=== PATIENT | female | born 1955 | race Caucasian/White ===

== ENCOUNTER 2021-11-01 12:57 | Inpatient (IN) | payer OTHER ==
[~2021-11-01] VITALS: Ht 162.6 cm; Wt 84.4 kg
[~2021-11-01 12:57] MED LIST: ASA81 PO; LIP20 PO
[2021-11-01 13:03] VITALS: BP_SYST 103
--- NOTE | 2021-11-01 13:37 | NUR ---
Patient to ER Hallway 1 to [facility] for evaluation. Side rails up. Report given to Maria Victoria FATIMA.
--- NOTE | 2021-11-01 13:42 | NUR ---
ER at bedside examining patient.
[2021-11-01] MEDS ORDERED: NACL 0.9% 1,000 ML IV ONE (14:00)
[2021-11-01 14:13] LABS: BASOPHILS % (AUTO) 0.3 % (0.0-2.0); EOSINOPHILS % (AUTO) 0.3 % (0.0-4.0); HEMATOCRIT 39.1 % (36-48); HEMOGLOBIN 12.9 g/dL (12.0-16.0); LYMPHOCYTES # (AUTO) 1.2 K/uL (1.0-5.5); MEAN CORPUSCULAR HEMOGLOBIN 28 pg (27-31); MEAN CORPUSCULAR HGB CONC 33 % (32-36); MEAN CORPUSCULAR VOLUME 85 fL (79.0-98.0); MONOCYTES # (AUTO) 0.4 K/uL (0.0-1.0); MONOCYTES % (AUTO) 5.4 % (1.7-9.3); NEUTROPHILS # (AUTO) 6.6 K/uL (1.8-7.7); PLATELET COUNT (AUTO) 164 K/uL (130-430); RED BLOOD CELL COUNT(AUTO) 4.58 MIL/uL (4.2-6.2); RED CELL DISTRIBUTION WIDTH 14.7 % (9.0-15.0); WHITE BLOOD COUNT (AUTO) 8.2 K/uL (4.8-10.8)
[2021-11-01 14:36] LABS: ANION GAP 7 (5-15); CALCIUM 8.7 mg/dL (8.4-11.0); CHLORIDE 105 mmol/L (98-107); CREATININE 0.85 mg/dL (0.55-1.30); GLUCOSE 126 mg/dL (70-99); POTASSIUM 3.9 mmol/L (3.5-5.1); SODIUM SERUM 140 mmol/L (136-145); UREA NITROGEN, BLOOD 22 mg/dL (8-21)
[2021-11-01 14:45] LABS: GFR AFRICAN AMERICAN 86 mL/min (>90)
[2021-11-01 14:51] LABS: ALANINE AMINOTRANSFERASE 27 U/L (12-78); ALBUMIN 3.8 g/dL (3.4-4.8); ASPARTATE AMINOTRANSFERASE 26 U/L (10-37); THYROID STIMULATING HORMONE 1.36 uIu/mL (0.36-3.74); TOTAL BILIRUBIN 0.5 mg/dL (0.0-1.0)
[2021-11-01] MEDS ORDERED: dilTIAZem HCL IVP 5 MG/ML VIAL IVP ONE (15:00)
--- NOTE | 2021-11-01 16:00 | NUR ---
Pt ambulates steadily to restroom. c/o chest tightness. BRADY Fermin gave Cardizem.
--- NOTE | 2021-11-01 16:30 | NUR ---
assumed care to pt at this time. report received from Maria Victoria FATIMA. pt is resting comfortably at bedside, vss nad. aox4, res even and unlabored. no pending orders at this time. wctm. awaiting 2nd trop results.
[2021-11-01] MEDS ORDERED: ASPIRIN 325 MG TABLET PO ONE (17:15)
[2021-11-01] MEDS ORDERED: DILTIAZEM HCL 30 MG TABLET PO ONE (17:30)
--- NOTE | 2021-11-01 17:34 | NUR ---
Covid specimen collected and sent to the lab.
--- NOTE | 2021-11-01 18:06 | NUR ---
Admit bed requested Patient will be admitted to care of . Admitted to Tele unit. Diagnosis A-Fib Inpatient (Yes or No) Yes Observation (Yes or No) No Orientation concerns or request close to nursing station (Yes or No) No Covid Status Negative On vent or bipap No Isolation requirements No Needs a sitter No From Home (Yes or if No enter name of facility) Yes Requires Dialysis (Yes or No) No Med Rec Completed (Yes of No) Pending
--- NOTE | 2021-11-01 18:45 | NUR ---
bedside report given to maricruz Payton. all questions answered. pt is aox4, resp even and unlabored. all belongngs with pt. iv site patent and intact. vss nad. condition: stable.
[2021-11-01 18:58] VITALS: BP_SYST 118
--- NOTE | 2021-11-01 18:59 | NUR ---
RECEIVED PT FROM ER. PT JUST MADE COMFORTABLE AND VITAL SIGNS TAKEN. ORIENTED TO NEW ENVIRONMENT AND UNIT SETTINGS. PT IS STABLE, NO DISTRESS NOTED. WILL ENDORSE CARE TO PM NURSE FOR ADMISSION.
[2021-11-01] MEDS ORDERED: ACETAMINOPHEN 325 MG TABLET PO PRN (19:00)
[2021-11-01] MEDS ORDERED: LORazepam 2 MG/ML VIAL IVP PRN (19:00)
[2021-11-01] MEDS ORDERED: ONDANSETRON HCL 4 MG/2 ML VIAL IVP PRN (19:00)
[2021-11-01 20:00] VITALS: BP_SYST 127
[2021-11-01 20:44] VITALS: BP_SYST 118
[2021-11-01] MEDS: ATORVASTATIN 20 MG TABLET PO SCH (21:39)
[2021-11-01] MEDS: NORMAL SALINE 5 ML DISP.SYRIN IVF SCH (22:00)
[2021-11-01] MEDS ORDERED: NORMAL SALINE 5 ML DISP.SYRIN IVF SCH (22:00)
--- NOTE | 2021-11-02 00:26 | NUR ---
CONSULTATION CALLED FOR DR. Teagan FLORES FOR CONSULT OF AFIB ORDER BY DR. Ricky FLORES SPOKE WITH TONY
[2021-11-02] MEDS: NORMAL SALINE 5 ML DISP.SYRIN IVF SCH ×3 (06:41→21:46)
[2021-11-02 08:31] LABS: CALCIUM 8.5 mg/dL (8.4-11.0); PHOSPHORUS 2.8 mg/dL (2.7-4.5); POTASSIUM 3.8 mmol/L (3.5-5.1)
[2021-11-02] MEDS: ASPIRIN 81 MG TAB.CHEW PO SCH (09:00)
[2021-11-02 10:20] LABS: CREATININE 0.78 mg/dL (0.55-1.30)
[2021-11-02 14:41] VITALS: BP_SYST 138
[2021-11-02] MEDS ORDERED: SOTALOL HCL 80 MG TABLET PO ONE (15:15)
[2021-11-02 15:22] LABS: BASOPHILS % (AUTO) 0.5 % (0.0-2.0); EOSINOPHILS # (AUTO) 0.1 K/uL (0.0-0.4); EOSINOPHILS % (AUTO) 1.3 % (0.0-4.0); HEMATOCRIT 39.7 % (36-48); HEMOGLOBIN 13.4 g/dL (12.0-16.0); LYMPHOCYTES # (AUTO) 2.3 K/uL (1.0-5.5); LYMPHOCYTES % (AUTO) 34.6 % (20.5-51.5); MEAN CORPUSCULAR HEMOGLOBIN 28 pg (27-31); MEAN CORPUSCULAR HGB CONC 34 % (32-36); MEAN CORPUSCULAR VOLUME 84 fL (79.0-98.0); MONOCYTES # (AUTO) 0.6 K/uL (0.0-1.0); MONOCYTES % (AUTO) 8.2 % (1.7-9.3); NEUTROPHILS # (AUTO) 3.7 K/uL (1.8-7.7); NEUTROPHILS % (AUTO) 55.4 % (40.0-70.0); PLATELET COUNT (AUTO) 183 K/uL (130-430); RED BLOOD CELL COUNT(AUTO) 4.71 MIL/uL (4.2-6.2); WHITE BLOOD COUNT (AUTO) 6.7 K/uL (4.8-10.8)
[2021-11-02 15:45] LABS: THYROID STIMULATING HORMONE 1.67 uIu/mL (0.36-3.74)
[2021-11-02] MEDS ORDERED: APIXABAN 2.5 MG TABLET PO ONE (16:15)
[2021-11-02 19:07] VITALS: BP_SYST 135
[2021-11-02 20:00] VITALS: BP_SYST 102
[2021-11-02] MEDS: APIXABAN 2.5 MG TABLET PO SCH (21:43)
[2021-11-02] MEDS: SOTALOL HCL 80 MG TABLET PO SCH (21:45)
[2021-11-02] MEDS: ATORVASTATIN 20 MG TABLET PO SCH (21:45)
[2021-11-03] VITALS: BP_SYST 122
[2021-11-03] MEDS: NORMAL SALINE 5 ML DISP.SYRIN IVF SCH (06:06)
[2021-11-03 08:00] VITALS: BP_SYST 119
[2021-11-03] MEDS: SOTALOL HCL 80 MG TABLET PO SCH (08:51)
[2021-11-03] MEDS: ASPIRIN 81 MG TAB.CHEW PO SCH (08:51)
[2021-11-03] MEDS: APIXABAN 2.5 MG TABLET PO SCH (08:52)
[2021-11-03 12:00] VITALS: BP_SYST 104
[2021-11-03] MEDS ORDERED: SOTA80TA71 PO (12:02)
[2021-11-03] MEDS ORDERED: APIX2.5T PO (12:02)
[2021-11-03 12:44] VITALS: BP_SYST 104
== END 2021-11-03 15:23 | disposition home or self-care (01) | DRG 310 ==
LOC: SED 12:57 → STU 17:33 → SMU 18:47 → STU 19:23
PROVIDERS: ADMIT Preventive Medicine Preventive Medicine/Occupational Environmental Medicine; ATTEND Preventive Medicine Preventive Medicine/Occupational Environmental Medicine
DX: I48.91 Unspecified atrial fibrillation (principal); Z91.041 Radiographic dye allergy status; I10 Essential (primary) hypertension; I25.2 Old myocardial infarction; E78.5 Hyperlipidemia, unspecified; R73.9 Hyperglycemia, unspecified; Z20.822 Contact with and (suspected) exposure to COVID-19; I25.10 Atherosclerotic heart disease of native coronary artery without angina pectoris; Z88.5 Allergy status to narcotic agent; Z79.899 Other long term (current) drug therapy; Z79.01 Long term (current) use of anticoagulants; Z87.891 Personal history of nicotine dependence
CPT/HCPCS: 36415; 71045; 80048; 80053; 80061; 83735; 83880; 84100; 84443; 84484; 85025; 93005; 96361; 96374; 99285; G0378; J3490